=== PATIENT | male | born 1955 | race Caucasian/White ===

== ENCOUNTER → 2017-04-03 | Outpatient (CLI) | payer BC ==
[~2017-04-03] MED LIST: IOHEXOL 240 MG/ML 50ML VIAL. ONE; IOHEXOL 300 MG/ML 75 ML VIAL. IV ONE
--- NOTE | 2017-04-03 17:13 | RAD ---
CT abdomen/pelvis with contrast 04/03/2017 at 1646 hours Indication: Gastroenteritis and colitis. Diarrhea since Saturday. Comparison: None available Technique: Multiple axial CT images of the abdomen and pelvis were obtained after the administration of 75 mL of Omnipaque 300 intravenously. Coronal and sagittal reformats provided. Findings: Lung bases are clear. Heart size is within normal limits. There is hypoattenuation of the hepatic parenchyma suggestive of hepatic steatosis. No suspicious hepatic masses are identified. Splenic granuloma are present. Adrenal glands are within normal limits. Pancreas is normal in appearance. Gallbladder is surgically absent. No intrahepatic or extrahepatic biliary ductal dilatation. The abdominal aorta is normal in course and caliber. There are no enlarged lymph nodes in the abdomen or pelvis. There is no free fluid. No free intracranial air. The kidneys enhance symmetrically. There are no renal calculi. No suspicious renal masses. Small and large bowel are normal in caliber. Appendix is normal. No pericolonic inflammatory changes are identified. Posterior fixation hardware is identified from L1 through S1 with bilateral pedicle screws and laminectomy at L4-L5. Impression: 1. No significant abnormalities identified in the abdomen or pelvis. Specifically, no evidence for bowel obstruction. Normal appendix is visualized. 2. Suggestion of hepatic steatosis. PQRS Compliance Statement: One or more of the following individualized dose reduction techniques were utilized for this examination: 1. Automated exposure control 2. Adjustment of the mA and/or kV according to patient size 3. Use of iterative reconstruction technique
== END | disposition home or self-care (01) ==
LOC: CT 15:17
PROVIDERS: ATTEND Nurse Practitioner Family
DX: K52.89 Other specified noninfective gastroenteritis and colitis (principal); Z90.49 Acquired absence of other specified parts of digestive tract; Z98.890 Other specified postprocedural states; R19.7 Diarrhea, unspecified
CPT/HCPCS: 74177; Q9966; Q9967

== ENCOUNTER 2018-03-18 10:36 | Inpatient (IN) | payer BC ==
[~2018-03-18] VITALS: Ht 177.8 cm; Wt 105.4 kg
[2018-03-18] MEDS ORDERED: ONDANSETRON PF 4 MG/2 ML VIAL. IV PRN (10:45)
[2018-03-18 11:06] LABS: BASO # 0.1 x10^3/uL (0.0-0.2); BASO % 1 % (0-3); EOS # 0.2 x10^3/uL (0.0-0.7); EOS % 3 % (0-3); HEMATOCRIT 40.4 % (39.0-53.0); HEMOGLOBIN 13.7 g/dL (13.0-17.5); LYMPH # 1.8 x10^3/uL (1.0-4.8); LYMPH % 32 % (24-48); MEAN CORPUSCULAR HEMOGLOBIN 32 pg (25-35); MEAN CORPUSCULAR HGB CONC 34 g/dL (31-37); MEAN CORPUSCULAR VOLUME 94 fL (79-100); MONO # 0.7 x10^3/uL (0.0-1.1); MONO % 12 % (0-9); NEUT # 2.8 x10^3uL (1.8-7.7); NEUT % 51 % (31-73); PLATELET COUNT 205 x10^3/uL (140-400); RED BLOOD COUNT 4.31 x10^6/uL (4.30-5.70); RED CELL DISTRIBUTION WIDTH 15.1 % (11.5-14.5); WHITE BLOOD COUNT 5.6 x10^3/uL (4.0-11.0)
--- NOTE | 2018-03-18 11:12 | RAD ---
CT of the head without contrast, 03/18/2018: HISTORY: Confusion, garbled speech, difficulty swallowing Comparison is made to a study from 07/03/2016. There is moderate cerebral atrophy. 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 The ventricles are within normal limits in size. There is no shift of the midline structures. There is no evidence of acute intracranial hemorrhage or mass effect. IMPRESSION: 1. Chronic findings as described above. 2. No acute intracranial abnormality is detected. Note: The findings were called to the patient's nurse on the floor at 11:08 AM on 03/18/2018. Electronically signed by: Channing Harvey MD (03/18/2018 11:08 AM) [facility]
[2018-03-18 11:18] LABS: ALBUMIN 3.3 g/dL (3.4-5.0); ALBUMIN/GLOBULIN RATIO 0.9 (1.0-1.7); CALCIUM 8.8 mg/dL (8.5-10.1); CREATININE 1.1 mg/dL (0.7-1.3); GFR 67.6; MAGNESIUM 1.8 mg/dL (1.8-2.4); POTASSIUM 4.5 mmol/L (3.5-5.1); TOTAL BILIRUBIN 0.3 mg/dL (0.2-1.0); TOTAL PROTEIN 6.9 g/dL (6.4-8.2)
[2018-03-18] MEDS ORDERED: OMEP40CA5 PO (11:20)
[2018-03-18] MEDS ORDERED: FISH12002 PO (11:20)
[2018-03-18] MEDS ORDERED: ICOS1CAP PO (11:20)
[2018-03-18] MEDS ORDERED: MAGN400C PO (11:20)
[2018-03-18] MEDS ORDERED: GABA-586 PO (11:20)
[2018-03-18] MEDS ORDERED: CLOP75TA57 PO (11:20)
[2018-03-18] MEDS ORDERED: SIMV40TA3 PO (11:20)
[2018-03-18] MEDS ORDERED: FLUV100T2 PO (11:20)
[2018-03-18] MEDS ORDERED: LOSA50TA6 PO (11:20)
[2018-03-18] MEDS ORDERED: FOLI1CAP10 PO (11:20)
[2018-03-18] MEDS ORDERED: METO25TA4 PO (11:20)
[2018-03-18 11:22] VITALS: BP 171/93
[2018-03-18] MEDS ORDERED: METOPROLOL TART IMMED RELEASE 25 MG TABLET PO ONE (11:45)
[2018-03-18] MEDS ORDERED: hydrALAZINE 20 MG/ML VIAL. IV PRN (12:00)
[2018-03-18 12:06] LABS: BACTERIA,URINE 0 /HPF (0-FEW); BILIRUBIN,URINE NEG (NEG); CLARITY,URINE CLEAR; COLOR,URINE YELLOW; GLUCOSE,URINE NEG (NEG); NITRITE,URINE NEG (NEG); RBC,URINE 0 /HPF (0-2); SQUAMOUS EPITHELIAL CELL,UR FEW /LPF; UROBILINOGEN,URINE 0.2 mg/dL (0.2 mg/dL); WBC,URINE 0 /HPF (0-4)
[2018-03-18] MEDS ORDERED: HYDR-2758 PO (12:14)
[2018-03-18] MEDS: IV NORMAL SALINE 1,000ML 1,000 ML IV SCH ×2 (12:27→22:40)
[2018-03-18 13:05] VITALS: BP 102/61
[2018-03-18] MEDS ORDERED: IOHEXOL 300 MG/ML 75 ML VIAL. IV ONE (13:45)
--- NOTE | 2018-03-18 14:54 | RAD ---
CTA of the chest with contrast, 03/18/2018: HISTORY: Elevated d-dimer, stroke Multidetector CT imaging was performed following an IV bolus injection of iodinated contrast material. Multiplanar reconstructions were produced including coronal MIP images. The degree of opacification of the central pulmonary arteries is suboptimal on a technical basis. No filling defects are seen in central pulmonary arteries to suggest pulmonary emboli. The thoracic aorta is of normal caliber. There are several calcifications in the region of the aortic valve. Minimal coronary artery calcification is present. There are calcified right hilar and mediastinal lymph nodes due to old granulomatous disease. No mediastinal adenopathy is seen. There are granulomatous calcifications in the right lung. There are scattered peripheral reticular opacities bilaterally suggesting scarring. There are minimal hazy nonspecific groundglass opacities in the right upper and lower lobes. No dense pulmonary consolidation is seen. There is no evidence of pleural fluid. The liver is of lower than normal density in a diffuse pattern compatible with fatty change. There are mild scattered degenerative changes in the spine. IMPRESSION: 1. No CT evidence of central pulmonary emboli, although the degree of opacification of the central pulmonary arteries is suboptimal, limiting the sensitivity of this exam. 2. Minimal aortic valve region and coronary artery calcifications. 3. Mild pulmonary fibrosis. 4. Minimal nonspecific groundglass opacities in the right lung may be due to inflammation or scarring. 5. Hepatic steatosis. PQRS Compliance Statement: One or more of the following individualized dose reduction techniques were utilized for this examination: 1. Automated exposure control 2. Adjustment of the mA and/or kV according to patient size 3. Use of iterative reconstruction technique Electronically signed by: Channing Harvey MD (03/18/2018 2:50 PM) [facility]
--- NOTE | 2018-03-18 16:34 | CARD ---
MR#: [id number] Date of Study: 03/18/2018 Ordering Physician: GERARDO GROVES, Referring Physician: GERARDO GROVES, Tech: WILLIAM Kay APPROVED REPORT EXAM: Two-dimensional and M-mode echocardiogram with Doppler and color Doppler. Other Information Quality : Good INDICATION CVA/TIA Chest Pain Dizziness 2D DIMENSIONS Left Atrium(2D)3.6 (1.6-4.0cm)IVSd1.0 (0.7-1.1cm) Aortic Root(2D)3.0 (2.0-3.7cm)LVDd5.0 (3.9-5.9cm) LVOT Diameter2.1 (1.8-2.4cm)PWd1.1 (0.7-1.1cm) IVSs0.1 (0.8-1.2cm)LVDs2.9 (2.5-4.0cm) FS (%) 42.3 %SV85.2 ml LVEF(%)65.0 (>50%) Aortic Valve AoV Peak Taran.302.9cm/sAoV VTI63.3cm AO Peak GR.36.7mmHgLVOT Peak Taran.115.6cm/s LVOT VTI 26.81cmAO Mean GR.20mmHg PETRA (VMAX)1.97ix5BVI (VTI)1.45cm2 Mitral Valve MV E Eyurwckh23.0cm/sMV DECEL [id number] MV A Rzdebihm26.1cm/sE/A Ratio1.3 Tricuspid Valve TR P. Buwgwowu871ls/sTR Peak Gr.32mmHg LEFT VENTRICLE The left ventricle is normal size. There is normal left ventricular wall thickness. The left ventricu lar systolic function is normal. The Ejection Fraction is 65%. There is normal LV segmental wall [place] on. RIGHT VENTRICLE The right ventricle is normal size. There is normal right ventricular wall thickness. The right ventr icular systolic function is normal. ATRIA The left atrium size is normal. The right atrium size is normal. The interatrial septum is intact wit h no evidence for an atrial septal defect or patent foramen ovale as noted on 2-D or Doppler imaging. AORTIC VALVE The aortic valve is trileaflet. The aortic valve is moderately sclerotic. Doppler and Color Flow reve aled trace to mild aortic regurgitation. There is mild valvular aortic stenosis. MITRAL VALVE The mitral valve is normal in structure and function. There is no mitral valve stenosis. Doppler and Color-flow revealed mild mitral regurgitation. TRICUSPID VALVE The tricuspid valve is normal in structure and function. Doppler and Color Flow revealed mild tricusp id regurgitation. There is no tricuspid valve prolapse or vegetation. PULMONIC VALVE The pulmonic valve is not well visualized. Doppler and Color Flow revealed no pulmonic valvular regur gitation. There is no pulmonic valvular stenosis. GREAT VESSELS The aortic root is normal in size. The IVC is normal in size and collapses >50% with inspiration. PERICARDIAL EFFUSION There is no pleural effusion. There is no evidence of significant pericardial effusion. Critical Notification Critical Value: No <Conclusion> The left ventricular systolic function is normal. The Ejection Fraction is 65%. There is normal LV segmental wall motion. Mild valvular aortic stenosis with mean gradient 20 mm Hg. Trace to mild aortic regurgitation. Mild mitral regurgitation. Mild tricuspid regurgitation. There is no evidence of significant pericardial effusion. Signed by : Issa Ritter, Electronically Approved : 03/18/2018 16:33:19
[2018-03-18] MEDS ORDERED: ASPIRIN 81 MG TAB.CHEW PO ONE (17:00)
[2018-03-18 17:02] VITALS: BP 146/81
[2018-03-18] MEDS ORDERED: HYDROcodone/APAP 5/325MG 1 TAB TABLET PO PRN (17:15)
[2018-03-18 19:50] VITALS: BP 112/66
[2018-03-18] MEDS: NON FORMULARY ITEM (Icosapent Ethyl (Vascepa) 1 GM) PO SCH (21:00)
[2018-03-18] MEDS ORDERED: ATORVASTATIN CALCIUM 20 MG TABLET PO SCH (21:00)
[2018-03-18] MEDS: GABAPENTIN 300 MG CAPSULE. PO SCH (21:48)
[2018-03-18] MEDS: METOPROLOL TART IMMED RELEASE 25 MG TABLET PO SCH (21:49)
[2018-03-18] MEDS: LOSARTAN 50 MG TABLET. PO SCH (21:49)
[2018-03-18 22:45] VITALS: BP 117/74
[2018-03-19 06:27] LABS: BASO % 1 % (0-3); EOS # 0.2 x10^3/uL (0.0-0.7); EOS % 4 % (0-3); HEMATOCRIT 42.2 % (39.0-53.0); HEMOGLOBIN 14.6 g/dL (13.0-17.5); LYMPH # 1.4 x10^3/uL (1.0-4.8); LYMPH % 30 % (24-48); MEAN CORPUSCULAR HEMOGLOBIN 33 pg (25-35); MEAN CORPUSCULAR HGB CONC 35 g/dL (31-37); MEAN CORPUSCULAR VOLUME 94 fL (79-100); MONO # 0.6 x10^3/uL (0.0-1.1); MONO % 13 % (0-9); NEUT # 2.6 x10^3uL (1.8-7.7); NEUT % 53 % (31-73); PLATELET COUNT 203 x10^3/uL (140-400); RED BLOOD COUNT 4.48 x10^6/uL (4.30-5.70); RED CELL DISTRIBUTION WIDTH 14.9 % (11.5-14.5); WHITE BLOOD COUNT 4.9 x10^3/uL (4.0-11.0)
[2018-03-19 06:37] LABS: ALBUMIN 3.2 g/dL (3.4-5.0); ALBUMIN/GLOBULIN RATIO 0.8 (1.0-1.7); CALCIUM 9.1 mg/dL (8.5-10.1); GFR 75.5; MAGNESIUM 1.9 mg/dL (1.8-2.4); POTASSIUM 4.2 mmol/L (3.5-5.1); TOTAL BILIRUBIN 0.5 mg/dL (0.2-1.0)
[2018-03-19 06:42] VITALS: BP 178/98
[2018-03-19] MEDS ORDERED: ASPIRIN 81 MG TAB.CHEW PO SCH (08:00)
[2018-03-19] MEDS: METOPROLOL TART IMMED RELEASE 25 MG TABLET PO SCH (08:07)
[2018-03-19] MEDS: GABAPENTIN 300 MG CAPSULE. PO SCH (08:08)
[2018-03-19] MEDS: LOSARTAN 50 MG TABLET. PO SCH (08:09)
[2018-03-19] MEDS ORDERED: PANTOPRAZOLE 40 MG TABLET. PO SCH (09:00)
[2018-03-19] MEDS ORDERED: OMEGA-3 FATTY ACIDS/FISH OIL 1,000 MG CAPSULE. PO SCH (09:00)
[2018-03-19] MEDS ORDERED: FOLIC ACID 1 MG TABLET PO SCH (09:00)
[2018-03-19] MEDS ORDERED: MAGNESIUM OXIDE 400 MG TABLET PO SCH (09:00)
[2018-03-19] MEDS: NON FORMULARY ITEM (Icosapent Ethyl (Vascepa) 1 GM) PO SCH (09:00)
[2018-03-19] MEDS ORDERED: CLOPIDOGREL BISULFATE 75 MG TABLET PO SCH (09:00)
[2018-03-19] MEDS ORDERED: amLODIPine BESYLATE 5 MG TABLET PO SCH (09:00)
[2018-03-19 10:03] VITALS: BP 159/96
[2018-03-19] MEDS: hydrALAZINE 25 MG TABLET PO SCH ×2 (10:35→14:05)
[2018-03-19] MEDS ORDERED: IOHEXOL 300 MG/ML 75 ML VIAL. IV ONE (10:40)
--- NOTE | 2018-03-19 10:54 | PDOC2 ---
CONSULT Date of Admission DATE: 03/19/18 TIME: 10:53 Reason for Consult: Hypertensive emergency. Referring Physician: Victor Manuel Reyes MD Chief Complaint Slurred speech and high blood pressure. Source: Patient History of Present Illness He is a pleasant 62-year-old male with no known history of coronary artery disease. Approximately 2 weeks ago he noticed his blood pressure was trending upwards. He saw his primary provider who adjusted the medications. However, he was still having high blood pressures, especially later in the day. Then yesterday his blood pressure again shot up into the 170-180 range. He was starting to feel somewhat confused and had slurred speech. He went to his primary care provider who then admitted to the hospital for further evaluation. Since being in the hospital, his dysarthria has improved. He was also having trouble swallowing yesterday but this has also improved. He denies any headache or visual changes. He denies any chest pain, dyspnea, paroxysmal nocturnal dyspnea, orthopnea, lightheadedness, syncope, or lower extremity edema. Because of the very high blood pressure, a cardiology caused is requested. Cardiovascular: HTN, hyperipidemia, aortic stenosis Family History His father had coronary artery bypass surgery in his 60s. Smoke: No Current Medications Current Medications Sodium Chloride 1,000 ml @ 100 mls/hr Q10H IV Last administered on 03/18/18at 22:40; Start 03/18/18 at 11:00; Stop 03/19/18 at 09:39; Status DC Ondansetron HCl (Zofran) 4 mg PRN Q8HRS PRN IV NAUSEA/VOMITING; Start 03/18/18 at 10:45 Metoprolol Tartrate (Lopressor) 25 mg 1X ONCE PO ; Start 03/18/18 at 11:45; Stop 03/18/18 at 11:46; Status DC Hydralazine HCl (Apresoline) 10 mg PRN Q4HRS PRN IV ELEVATED BP, SEE COMMENTS Last administered on 03/18/18at 12:27; Start 03/18/18 at 12:00 Amlodipine Besylate (Norvasc) 5 mg DAILY PO Last administered on 03/19/18at 08:07 ; Start 03/19/18 at 09:00 Iohexol (Omnipaque 300 Mg/ml) 75 ml 1X ONCE IV Last administered on 03/18/18at 14:06; Start 03/18/18 at 13:45; Stop 03/18/18 at 13:46; Status DC Aspirin (Children'S Aspirin) 81 mg DAILYWBKFT PO Last administered on 03/19/18 08:08; Start 03/19/18 at 08:00 Aspirin (Children'S Aspirin) 81 mg 1X ONCE PO Last administered on 03/18/18at 18:11; Start 03/18/18 at 17:00; Stop 03/18/18 at 17:01; Status DC Clopidogrel Bisulfate (Plavix) 75 mg DAILY PO Last administered on 03/19/18 08: 10; Start 03/19/18 at 09:00 Gabapentin (Neurontin) 300 mg BID PO Last administered on 03/19/18at 08:08; Start 03/18/18 at 21:00 Losartan Potassium (Cozaar) 50 mg BID PO Last administered on 03/19/18at 08:09; Start 03/18/18 at 21:00 Metoprolol Tartrate (Lopressor) 25 mg BID PO Last administered on 03/19/18at 08: 07; Start 03/18/18 at 21:00 Atorvastatin Calcium (Lipitor) 20 mg QHS PO Last administered on 03/18/18at 21: 49; Start 03/18/18 at 21:00 Fish Oil (Fish Oil) 1,000 mg DAILY PO Last administered on 03/19/18at 08:07; Start 03/19/18 at 09:00 Fluvoxamine Maleate (Luvox) 100 mg QHS PO Last administered on 03/18/18at 21:49 ; Start 03/18/18 at 21:00 Folic Acid (Folic Acid) 1 mg DAILY PO Last administered on 03/19/18at 08:05; Start 03/19/18 at 09:00 Acetaminophen/ Hydrocodone Bitart (Lortab 5/325) 1 tab PRN Q6HRS PRN PO PAIN; Start 03/18/18 at 17:15 Non-Formulary Medication (Icosapent Ethyl (Vascepa)) 1 gm BID PO ; Start at 21:00; Status UNV Magnesium Oxide (Magnesium Oxide) 400 mg DAILY PO Last administered on at 08:10; Start 03/19/18 at 09:00 Pantoprazole Sodium (Protonix) 40 mg QODAY PO Last administered on 03/19/18at 08: 08; Start 03/19/18 at 09:00 Hydralazine HCl (Apresoline) 25 mg TID PO Last administered on 03/19/18at 10:35; Start 03/19/18 at 10:00 Iohexol (Omnipaque 300 Mg/ml) 75 ml 1X ONCE IV Last administered on 03/19/18at 10:40; Start 03/19/18 at 10:40; Stop 03/19/18 at 10:41; Status DC Active Scripts Active Reported Hydrocodone-Apap 5-325 (Hydrocodone Bit/Acetaminophen) 1 Each Tablet 1 Tab PO PRN Q6HRS PRN Magnesium (Magnesium Oxide) 400 Mg Capsule 1 Cap PO DAILY Brimson 3-6-9 1,200 mg Softgel (Fish Oil/Borage/Flax/Om3,6,9#1) 1,200 Mg Capsule 1 ,200 Mg PO DAILY Renal Caps Softgel (Folic Acid/Vitamin B Comp W-C) 1 Mg Capsule 1 Cap PO DAILY Gabapentin 300 Mg Capsule 300 Mg PO BID Plavix (Clopidogrel Bisulfate) 75 Mg Tablet 1 Tab PO DAILY Plavix (Clopidogrel Bisulfate) 75 Mg Tablet 1 Tab PO DAILY Metoprolol Tartrate 25 Mg Tablet 1 Tab PO BID Omeprazole 40 Mg Capsule.dr 1 Cap PO QODAY Simvastatin 40 Mg Tablet 1 Tab PO QHS Fluvoxamine Maleate 100 Mg Tablet 1 Tab PO QHS Losartan Potassium 50 Mg Tablet 50 Mg PO BID Vascepa (Icosapent Ethyl) 1 Gm Capsule 1 Gm PO BID Allergies: Coded Allergies: No Known Drug Allergies (Unverified , 04/03/17) Review of System Review of 10 organ systems is as per the history of present illness, otherwise negative. General: Alert, Oriented X3, Cooperative, No acute distress HEENT: Atraumatic, EOMI, Mucous membr. moist/pink Lungs: Clear to auscultation, Normal air movement Heart: Regular rate, Normal S1, Normal S2, Other (2/6 systolic ejection murmur. ) Abdomen: Normal bowel sounds, Soft, No tenderness, No hepatospenomegaly, No masses Extremities: No clubbing, No cyanosis, No edema, Normal pulses, No tenderness/ swelling VITALS Vital Signs Date Time Temp Pulse Resp B/P (MAP) Pulse Ox O2 Delivery O2 Flow Rate FiO2 03/19/18 10:35 55 159/96 03/19/18 10:03 97.8 20 97 Room Air Labs Laboratory Tests Test 03/18/18 10:57 03/18/18 11:39 03/18/18 17:10 03/18/18 23:09 White Blood Count 5.6 x10^3/uL (4.0-11.0) Red Blood Count 4.31 x10^6/uL (4.30-5.70) Hemoglobin 13.7 g/dL (13.0-17.5) Hematocrit 40.4 % (39.0-53.0) Mean Corpuscular Volume 94 fL (79-100) Mean Corpuscular Hemoglobin 32 pg (25-35) Mean Corpuscular Hemoglobin Concent 34 g/dL (31-37) Red Cell Distribution Width 15.1 % (11.5-14.5) Platelet Count 205 x10^3/uL (140-400) Neutrophils (%) (Auto) 51 % (31-73) Lymphocytes (%) (Auto) 32 % (24-48) Monocytes (%) (Auto) 12 % (0-9) Eosinophils (%) (Auto) 3 % (0-3) Basophils (%) (Auto) 1 % (0-3) Neutrophils # (Auto) 2.8 x10^3uL (1.8-7.7) Lymphocytes # (Auto) 1.8 x10^3/uL (1.0-4.8) Monocytes # (Auto) 0.7 x10^3/uL (0.0-1.1) Eosinophils # (Auto) 0.2 x10^3/uL (0.0-0.7) Basophils # (Auto) 0.1 x10^3/uL (0.0-0.2) D-Dimer (Carin) 0.56 mg/L (0.00-0.50) Sodium Level 132 mmol/L (136-145) Potassium Level 4.5 mmol/L (3.5-5.1) Chloride Level 100 mmol/L (98-107) Carbon Dioxide Level 27 mmol/L (21-32) Anion Gap 5 (6-14) Blood Urea Nitrogen 24 mg/dL (8-26) Creatinine 1.1 mg/dL (0.7-1.3) Estimated GFR (Cockcroft-Gault) 67.6 BUN/Creatinine Ratio 22 (6-20) Glucose Level 131 mg/dL (70-99) Lactic Acid Level 0.5 mmol/L (0.4-2.0) Calcium Level 8.8 mg/dL (8.5-10.1) Magnesium Level 1.8 mg/dL (1.8-2.4) Total Bilirubin 0.3 mg/dL (0.2-1.0) Aspartate Amino Transf (AST/SGOT) 61 U/L (15-37) Alanine Aminotransferase (ALT/SGPT) 94 U/L (16-63) Alkaline Phosphatase 127 U/L (46-116) Creatine Kinase 176 U/L (39-308) 159 U/L (39-308) 158 U/L (39-308) Creatine Kinase MB (Mass) 5.6 ng/mL (0.0-3.6) 5.0 ng/mL (0.0-3.6) 4.5 ng/mL (0.0-3.6) Creatine Kinase MB Relative Index 3.2 % (0-4) 3.1 % (0-4) 2.8 % (0-4) Troponin I Quantitative < 0.017 ng/mL (0-0.055) < 0.017 ng/mL (0-0.055) < 0.017 ng/mL (0-0.055) Total Protein 6.9 g/dL (6.4-8.2) Albumin 3.3 g/dL (3.4-5.0) Albumin/Globulin Ratio 0.9 (1.0-1.7) Ethyl Alcohol Level < 10 mg/dL (0-10) Urine Collection Type Unknown Urine Color Yellow Urine Clarity Clear Urine pH 6.0 Urine Specific [place] <=1.005 Urine Protein Neg (NEG-TRACE) Urine Glucose (UA) Neg mg/dL (NEG) Urine Ketones (Stick) Neg mg/dL (NEG) Urine Blood Neg (NEG) Urine Nitrite Neg (NEG) Urine Bilirubin Neg (NEG) Urine Urobilinogen Dipstick 0.2 mg/dL (0.2 mg/dL) Urine Leukocyte Esterase Neg (NEG) Urine RBC 0 /HPF (0-2) Urine WBC 0 /HPF (0-4) Urine Squamous Epithelial Cells Few /LPF Urine Bacteria 0 /HPF (0-FEW) Test 03/19/18 05:53 White Blood Count 4.9 x10^3/uL (4.0-11.0) Red Blood Count 4.48 x10^6/uL (4.30-5.70) Hemoglobin 14.6 g/dL (13.0-17.5) Hematocrit 42.2 % (39.0-53.0) Mean Corpuscular Volume 94 fL (79-100) Mean Corpuscular Hemoglobin 33 pg (25-35) Mean Corpuscular Hemoglobin Concent 35 g/dL (31-37) Red Cell Distribution Width 14.9 % (11.5-14.5) Platelet Count 203 x10^3/uL (140-400) Neutrophils (%) (Auto) 53 % (31-73) Lymphocytes (%) (Auto) 30 % (24-48) Monocytes (%) (Auto) 13 % (0-9) Eosinophils (%) (Auto) 4 % (0-3) Basophils (%) (Auto) 1 % (0-3) Neutrophils # (Auto) 2.6 x10^3uL (1.8-7.7) Lymphocytes # (Auto) 1.4 x10^3/uL (1.0-4.8) Monocytes # (Auto) 0.6 x10^3/uL (0.0-1.1) Eosinophils # (Auto) 0.2 x10^3/uL (0.0-0.7) Basophils # (Auto) 0.0 x10^3/uL (0.0-0.2) Sodium Level 139 mmol/L (136-145) Potassium Level 4.2 mmol/L (3.5-5.1) Chloride Level 105 mmol/L (98-107) Carbon Dioxide Level 26 mmol/L (21-32) Anion Gap 8 (6-14) Blood Urea Nitrogen 16 mg/dL (8-26) Creatinine 1.0 mg/dL (0.7-1.3) Estimated GFR (Cockcroft-Gault) 75.5 BUN/Creatinine Ratio 16 (6-20) Glucose Level 111 mg/dL (70-99) Calcium Level 9.1 mg/dL (8.5-10.1) Magnesium Level 1.9 mg/dL (1.8-2.4) Total Bilirubin 0.5 mg/dL (0.2-1.0) Aspartate Amino Transf (AST/SGOT) 48 U/L (15-37) Alanine Aminotransferase (ALT/SGPT) 88 U/L (16-63) Alkaline Phosphatase 78 U/L (46-116) Total Protein 7.0 g/dL (6.4-8.2) Albumin 3.2 g/dL (3.4-5.0) Albumin/Globulin Ratio 0.8 (1.0-1.7) Assessment/Plan Hypertensive emergency. I made some adjustments to the patient's antihypertensive therapy and his blood pressure has improved. If his blood pressure continues to be high in the afternoons, we may want to consider giving him amlodipine twice a day as opposed to once a day. If his blood pressure remains under good control, he may be ready for discharged home once his neurologic and other noncardiac problems are improved. Aortic stenosis. This is in a mild to moderate range. This should not be causing symptoms but will need to be followed longitudinally. I will have my office arrange for a 1 month follow-up after discharge and then we will plan to see him twice a year after that. Hypercholesterolemia. I recommend he continue on statin medication. A lipid panel was pending when I saw him earlier today. Transient ischemic attack. The patient seems to have suffered a transient ischemic attack. He had a previous history of a stroke in the past. I recommend he continue on aspirin, clopidogrel, and statin medication. He is apparently ordered for an MRI later today. We may also want to consider an outpatient event monitor to screen for asymptomatic atrial fibrillation that could have also caused transient ischemic attack. Disposition. As above, from a cardiac standpoint, the patient can be discharged home once all of his noncardiac problems have come under control. I will have my office arrange for outpatient follow-up in approximately 1 month. YOUSIF LAU Jr, MD Mar 19, 2018 10:54
--- NOTE | 2018-03-19 11:56 | RAD ---
CTA of the head and neck with contrast, 03/19/2018: HISTORY: TIA, previous left carotid endarterectomy Multidetector CT imaging was performed with multiplanar reconstructions produced. There is no significant stenosis of the cervicocephalic arteries as they arise from the aortic arch. The right common carotid artery is widely patent. There is mild calcific plaquing at the right carotid bifurcation. This is producing only minimal narrowing of the proximal right internal carotid artery. The distal right internal carotid artery is widely patent in the upper neck. There is moderate calcific plaquing involving its cavernous segment with moderate associated stenosis. The right middle cerebral and anterior cerebral arteries and their major branches are unremarkable. On the left, the common carotid artery and carotid bifurcation are widely patent. The proximal left internal carotid artery is tortuous but widely patent. There is mild calcific plaquing involving its cavernous segment without evidence of high-grade stenosis. The left anterior cerebral and middle cerebral arteries and their major branches show no abnormality. Both vertebral arteries in the neck are patent. The left vertebral artery is dominant. The basilar artery shows no abnormality. The posterior cerebral arteries are somewhat small and not optimally opacified. No definite abnormality is seen. Moderate multilevel degenerative changes are noted in the cervical spine. IMPRESSION: 1. Mild calcific plaquing at the right carotid bifurcation with only minimal narrowing of the proximal right internal carotid artery. 2. Status post left carotid endarterectomy with no evidence of significant restenosis. 3. Moderate calcific plaquing and narrowing of the cavernous segment of the distal right internal carotid artery. 4. Otherwise no major intracranial arterial occlusive disease is identified. PQRS Compliance Statement: One or more of the following individualized dose reduction techniques were utilized for this examination: 1. Automated exposure control 2. Adjustment of the mA and/or kV according to patient size 3. Use of iterative reconstruction technique Electronically signed by: Channing Harvey MD (03/19/2018 11:52 AM) [facility]
[2018-03-19 14:05] VITALS: BP 159/96
--- NOTE | 2018-03-19 16:07 | CONS ---
DATE OF CONSULTATION: 03/18/2018 REFERRING PHYSICIAN: Dr. Reyes. REASON FOR CONSULTATION: Rule out TIA versus stroke. HISTORY OF PRESENT ILLNESS: This is a 62-year-old right-handed, pleasant male who was admitted directly from his primary care physician's office after he was found to have emergent high blood pressure. According to the patient, he has been suffering from hypertension off and on in the last 3 weeks, but this morning, he did not feel well and he started having unsteady gait, slurred speech and difficulty swallowing. He denies headaches, visual disturbances, chest pain, shortness of breath, or palpitations. He was seen immediately in primary care physician's office and found to have a blood pressure of 179/101. The patient also complains of chronic lower back pain radiating to the lower extremities and associated with numbness and paresthesia, prolonged standing and walking usually aggravates his back pain. The Initial nonenhanced head CT scan revealed no acute intracranial process, but showed left frontal lobe infarct and left occipital lobe infarct old infarct. PAST MEDICAL HISTORY: Consistent with a stroke in 2015, affecting his right side, but recovered with physical therapy and rehabilitation. History of hypertension, hyperlipidemia, TIA, chronic lower back pain, GERD. The patient was seen at [facility] one and half years ago and they took him off aspirin because of improved symptoms of stroke. MRA of the cervical spine performed in 06/2016 revealed irregular proximal left common internal carotid artery and at least 50% of stenosis. MRA of the brain revealed possible diminished diameter of the distal basilar artery. PAST SURGICAL HISTORY: Significant for multiple lumbosacral spine surgeries with effusion along with right rotator cuff repair in 2016, cholecystectomy in 2004, right total knee replacement in 2013, left total knee replacement in 05/2015, left carotid prostatectomy at in 03/2016, status post left second toe amputation in 11/2016. FAMILY HISTORY: Father had coronary artery disease, required a coronary artery bypass graft. Mother had lupus and Sjogren disease. There is a family history of heart disease and Alzheimer's. SOCIAL HISTORY: The patient had one living son. He denies smoking, but he drinks alcohol moderately. CURRENT HOME MEDICATIONS: Plavix 75 mg, was placed about 2 months ago for possible recurrent TIAs, simvastatin 40 mg daily, omeprazole 40 mg p.o. daily, gabapentin 300 mg twice daily, cyclobenzaprine 5 mg 3 times daily, losartan 50 mg daily and metoprolol 25 mg b.i.d. ALLERGIES: No known drug allergies. REVIEW OF SYSTEMS: A 10-point review of system was as mentioned above in history of present illness. PHYSICAL EXAMINATION: GENERAL: Obese white male in no acute distress. He weighs 232 pounds. VITAL SIGNS: Blood pressure 102/61, respiratory rate 20, pulse of 56, temperature 98.3, oxygen saturation 98% on room air. HEENT: Normocephalic, atraumatic, otherwise unremarkable. NECK: Supple. Negative for carotid bruit, thyromegaly, lymphadenopathy, or JVD, status post left carotid endarterectomy. LUNGS: Clear to A and P. CARDIOVASCULAR: Regular rhythm, normal S1, S2. There is a 2/6 systolic murmur. No S3, no S4. ABDOMEN: Soft, bowel sounds positive. No organomegaly or tenderness. EXTREMITIES: Negative for cyanosis, clubbing or edema. NEUROLOGIC: Mental status: The patient is alert and oriented x 3. Speech is fluent. There is no language dysfunction. His memory, judgment her abstract thinking are normal. The patient denies hallucination or delusion. Cranial Nerves: Visual mcclain full. The pupils are reactive to light and accommodation. Extraocular movements are intact. There is no nystagmus. There is no facial motor or sensory deficit. Hearing is slightly diminished bilaterally. The palate is elevated symmetrically. Sternocleidomastoid muscles are powerful bilaterally. The patient shrugs his shoulder symmetrically, protrudes his tongue in the midline without fasciculation or atrophy. Motor examination: No focal muscle bulk was seen. The tone is normal. The strength is 5/5 throughout. Sensory examination: Revealed normal pinprick, light touch, vibratory and position senses. Deep tendon Reflexes were symmetric and hypoactive with absent Achilles responses bilaterally. Gait and coordination are normal. LABORATORY DATA: CBC revealed white blood cells of 5.6 thousand, hemoglobin 13.7, hematocrit 40.4, platelet count 205,000. Chemistry: Sodium 132, potassium 4.5, chloride 100, CO2 of 27, BUN 24, creatinine 1.1, glucose was 131, calcium 8.8. Liver enzymes are elevated, AST at 61, ALT at 94 and alkaline phosphatase is high at 127. Creatinine kinase is normal at 176 with his CK-MB of 5.6. Troponin level is normal. Urinalysis is negative. Urine drug screen is negative with alcohol less than 10. IMPRESSION: 1. Possible transient ischemic attack. The patient presented with severe hypertension along with slurred speech, dysphagia and unsteady gait. The symptoms lasted from 9:00 a.m. to 2:00 p.m. with complete recovery. 2. Multiple risk of strokes including age, hypertension, hyperlipidemia, previous stroke and recurrent TIAs. 3. Abnormal echocardiogram with a cardiac murmur. 4. Chronic lower back pain, status post multiple back surgeries, with possible spinal stenosis. 5. Symptoms of peripheral neuropathy. RECOMMENDATIONS: 1. Correct hypertension slowly and keep systolic blood pressure between 130-140 mmHg. 2. Cardiology consult. 3. CT angio of the neck and head. 4. The patient has been scheduled to be seen by physical therapy. 5. We will start the patient on aspirin 81 mg additionally to the Plavix as the patient had possible TIA while he was taking Plavix. M Ruhtie PAYNE MD DR: CUBA/maximilian JOB#: [id number] / [id number]
--- NOTE | 2018-03-20 05:31 | DS ---
DATE OF DISCHARGE: 03/19/2018 HOSPITAL COURSE: This is a 62-year-old gentleman who came in with lightheadedness and dizziness. The patient was initially seen in the office, admitted to the hospital for further evaluation. He was seen by Dr. Sterling, his rough rounder machine. Cardiac enzymes were basically ____. He had elevated blood pressure of 170 to 180. The patient had become confused and had slurred speech and there was consistent concern that the patient had some ____ either a TIA or a stroke. The patient has a previous history of strokes and TIAs in the past as well. Immunizations for influenza and pneumococcal were up to date. The patient made good progress. His cardiac enzymes were basically negative; however, the patient's triglycerides were elevated at 255, LDL low at 37, and his LDL was only roughly 80. Slight elevation of liver enzymes 48 and 88, AST and ALT respectively. The patient otherwise made good progress. He was seen by Neurology. His CTA of the neck showed mild calcific bifurcation of the right carotid only ____ left carotid endarterectomy with no evidence of significant restenosis, moderate calcific plaquing and narrowing of the cavernous segment of distal right internal carotid artery. He had encephalomalacia in the left frontal lobe and left occipital lobe ____ infarcts. He had moderate cerebral atrophy. The patient otherwise made good progress. The patient will follow up with Dr. Sterling and Dr. Morales. IMPRESSION: Probable transient ischemic attack, chest pain, history of carotid atherosclerosis, elevated liver enzymes, mild protein malnutrition, hypercholesterolemia, hypertriglyceridemia, encephalomalacia, history of previous stroke to left frontal lobe with a history also of transient ischemic attack. The patient has slurred speech. The patient will be discharged home. DIET: Heart healthy diet. ACTIVITY: Decreased activity. FOLLOWUP: Follow up with his specialist as well as his primary care physician. GERARDO GROVES MD DR: FRANCES/maximilian JOB#: [id number] / [id number]
--- NOTE | 2018-03-21 13:25 | EKG ---
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
== END 2018-03-19 17:10 | disposition home or self-care (01) | DRG 69 ==
LOC: 1 SOUTH 10:38
PROVIDERS: ADMIT Family Medicine; ATTEND Family Medicine
DX: G45.9 Transient cerebral ischemic attack, unspecified (principal); I16.1 Hypertensive emergency; E44.1 Mild protein-calorie malnutrition; E78.00 Pure hypercholesterolemia, unspecified; E78.1 Pure hyperglyceridemia; E78.5 Hyperlipidemia, unspecified; G89.29 Other chronic pain; I10 Essential (primary) hypertension; I35.0 Nonrheumatic aortic (valve) stenosis; K21.9 Gastro-esophageal reflux disease without esophagitis; I67.89 Other cerebrovascular disease; R47.1 Dysarthria and anarthria; Z96.653 Presence of artificial knee joint, bilateral; M54.5 Low back pain; R26.81 Unsteadiness on feet; G93.89 Other specified disorders of brain; R13.10 Dysphagia, unspecified; Z82.0 Family history of epilepsy and other diseases of the nervous system; Z82.49 Family history of ischemic heart disease and other diseases of the circulatory system; Z83.2 Family history of diseases of the blood and blood-forming organs and certain disorders involving the immune mechanism; Z89.422 Acquired absence of other left toe(s); Z90.49 Acquired absence of other specified parts of digestive tract; Z98.1 Arthrodesis status; Z79.899 Other long term (current) drug therapy; Z79.02 Long term (current) use of antithrombotics/antiplatelets; Z68.33 Body mass index [BMI] 33.0-33.9, adult
CPT/HCPCS: 36415; 70450; 70496; 70498; 71275; 80053; 80061; 81001; 82553; 83605; 83735; 84484; 85025; 85379; 93005; 93306; G0480; J0360; Q9967; J7030

== ENCOUNTER → 2018-03-27 | Outpatient (CLI) | payer BC ==
[2018-03-19 14:05] VITALS: BP 159/96
[~2018-03-27] MED LIST changes: +CLOP75TA57 PO; +FISH12002 PO; +FLUV100T2 PO; +FOLI1CAP10 PO; +GABA-586 PO; +HYDR-2758 PO; +ICOS1CAP PO; -IOHEXOL 240 MG/ML 50ML VIAL. ONE; -IOHEXOL 300 MG/ML 75 ML VIAL. IV ONE; +LOSA50TA6 PO; +MAGN400C PO; +METO25TA4 PO; +OMEP40CA5 PO; +SIMV40TA3 PO
--- NOTE | 2018-03-27 10:13 | RAD ---
CT lumbar spine without intravenous contrast History: Previous surgery. New onset of radiculopathy in the right leg. Numbness in right foot. Pain in the lower back. Comparison: Report of outside MRI ([facility]) March 10, 2018 was reviewed. Direct images are not available. Technique: Noncontrast CT of the lumbar spine was performed. Axial, sagittal, and coronal reconstructions were obtained. Exposure: One or more of the following individualized dose reduction techniques were utilized for this examination: 1. Automated exposure control 2. Adjustment of the mA and/or kV according to patient size 3. Use of iterative reconstruction technique Findings: Evaluation of spinal contents is limited by lack of intrathecal contrast. Extensive spinal fusion hardware is seen. Posterior spinal fusion hardware with bilateral pedicle screws and bilateral bridging vertical bars are seen at each level from L1 through S1. The bilateral sacral screws demonstrate 2 mm of lucency surrounding the screws, indicating mild loosening. The other screws are without evidence of loosening. Discectomy changes are seen at L3-4 and L4-5. L4-5 and L5-S1 laminectomy changes are seen. Right hemilaminectomy changes are seen at L1-2. Posterior osseous bone graft material is seen at L1-2 and L2-3. There is no evidence of acute fracture or acute malalignment. No paravertebral soft tissue swelling is identified. There is mild retrolisthesis at L1-2. T12-L1 level demonstrates minimal disc bulge. There is mild buckling of ligamentum flavum and minimal bilateral facet hypertrophy. No spinal canal narrowing is seen. L1-2 level demonstrates posterior disc osteophyte complex. Right hemilaminectomy changes are seen. There is mild left facet hypertrophy. Mild left and moderate right neural foraminal narrowing is seen. No spinal canal narrowing is seen. L2-3 level is without convincing disc bulge. Bilateral facet hypertrophy is seen. Minimal bilateral neural foraminal narrowing is present. No spinal canal narrowing is seen. L3-4 level demonstrates advanced facet degeneration and mild buckling of ligamentum flavum. No spinal canal or neural foraminal narrowing is identified. L4-5 level demonstrates advanced bilateral facet hypertrophy. Spinal canal is widely patent. Mild bilateral neural foraminal narrowing is seen. L5-S1 level demonstrates advanced bilateral facet hypertrophy. There is evidence of diffuse disc bulge. No spinal canal stenosis is identified. Severe bilateral neural foraminal narrowing is seen. Impression: 1. Extensive postsurgical change from L1 through S1. The bilateral S1 pedicle screws demonstrate evidence of mild loosening. Other pedicle screws have appropriate appearance. 2. No acute fracture identified. 3. No spinal canal stenosis identified at any level. 4. Multilevel neural foraminal narrowing, worst at L5-S1 where it is severe. Lesser neural foraminal narrowing at other levels as described above. Electronically signed by: Jerardo Steven MD (03/27/2018 10:09 AM) [id number]
--- NOTE | 2018-03-27 11:43 | RAD ---
Lumbar spine, 3 views, 03/27/2018: HISTORY: Right leg radiculopathy, previous surgery Comparison is made to a study from 06/12/2016. There are bilateral pedicle screws at all the lumbar levels as well as at S1 attached to longitudinally oriented posterior fixation rods. Radiopaque disc spacers are present at L3-4 and L4-5. A laminectomy defect is present at L4 and L5. There is a minimal unchanged anterolisthesis at L5-S1 and a minimal retrolisthesis at L1-2. There is moderate disc space narrowing and spurring at L1-2 and to a lesser degree at L2-3 and L5-S1. The vertebral alignment appears unchanged. No fracture is evident. Aortic calcific plaquing is present. IMPRESSION: 1. Stable extensive postsurgical findings as described above. 2. Moderate multilevel degenerative change. 3. Unchanged minimal anterolisthesis at L5-S1 and minimal retrolisthesis at L1-2. Electronically signed by: Channing Harvey MD (03/27/2018 11:40 AM) [facility]
== END | disposition home or self-care (01) ==
LOC: CT 08:02
PROVIDERS: ATTEND Neurological Surgery
DX: M47.896 Other spondylosis, lumbar region (principal); M43.17 Spondylolisthesis, lumbosacral region; M48.07 Spinal stenosis, lumbosacral region; M25.78 Osteophyte, vertebrae; I10 Essential (primary) hypertension; E78.5 Hyperlipidemia, unspecified; E78.00 Pure hypercholesterolemia, unspecified; Z79.02 Long term (current) use of antithrombotics/antiplatelets; Z96.653 Presence of artificial knee joint, bilateral; Z90.49 Acquired absence of other specified parts of digestive tract; Z89.422 Acquired absence of other left toe(s); Z68.33 Body mass index [BMI] 33.0-33.9, adult; Z83.2 Family history of diseases of the blood and blood-forming organs and certain disorders involving the immune mechanism
CPT/HCPCS: 72100; 72131

== ENCOUNTER → 2019-04-03 | Outpatient (CLI) | payer BC ==
[2019-04-02 10:00] VITALS: BP 146/82
[~2019-04-03] MED LIST changes: +CYCL-331 PO; +HYDR-2155 PO; -HYDR-2758 PO; -LOSA50TA6 PO; +LOSA50TA86 PO
--- NOTE | 2019-04-03 16:14 | RAD ---
Right lower extremity arterial duplex study 04/03/2019 CLINICAL HISTORY: Nonhealing wound involving the right foot. TECHNIQUE: Using a combination of real-time ultrasound imaging and color-flow and pulse doppler imaging techniques, duplex evaluation of the major arterial structures of the right lower extremity was performed. Multiple images were obtained. FINDINGS: Mild atheromatous/atherosclerotic plaque formation is seen scattered throughout the major arterial structures of the right lower extremity. The right common femoral, superficial femoral and popliteal arteries are triphasic. The posterior tibial artery is monophasic. The peak systolic velocities taper normally. No hemodynamically significant stenosis is seen. The right peroneal arteries and anterior tibial arteries appear to be occluded. Monophasic arterial flow is seen within the right dorsalis pedis artery with a peak systolic velocity of 73 cm/s. IMPRESSION: Mild atheromatous/atherosclerotic plaque formation is seen scattered throughout the major arterial structures of the right lower extremity. No hemodynamically significant stenosis is seen. The right peroneal and anterior tibial arteries appear to be occluded. Electronically signed by: Alvaro Loja MD (04/03/2019 4:11 PM) [id number]
== END | disposition home or self-care (01) ==
LOC: US 09:43
PROVIDERS: ATTEND Emergency Medicine Undersea and Hyperbaric Medicine
DX: I70.291 Other atherosclerosis of native arteries of extremities, right leg (principal); L97.518 Non-pressure chronic ulcer of other part of right foot with other specified severity
CPT/HCPCS: 93926

== ENCOUNTER → 2019-04-14 | Outpatient (CLI) | payer BC ==
[2019-04-14 10:15] VITALS: BP 124/71
[2019-04-14 18:37] LABS: CALCIUM 9.2 mg/dL (8.5-10.1); CREATININE 1.2 mg/dL (0.7-1.3); POTASSIUM 4.3 mmol/L (3.5-5.1)
[2019-04-14 18:58] LABS: BASO # 0.1 x10^3/uL (0.0-0.2); BASO % 1 % (0-3); EOS # 0.3 x10^3/uL (0.0-0.7); EOS % 4 % (0-3); HEMOGLOBIN 12.2 g/dL (13.0-17.5); LYMPH % 29 % (24-48); MEAN CORPUSCULAR HEMOGLOBIN 33 pg (25-35); MEAN CORPUSCULAR HGB CONC 34 g/dL (31-37); MEAN CORPUSCULAR VOLUME 99 fL (79-100); MONO # 0.7 x10^3/uL (0.0-1.1); MONO % 10 % (0-9); NEUT # 3.9 x10^3uL (1.8-7.7); NEUT % 56 % (31-73); PLATELET COUNT 183 x10^3/uL (140-400); RED BLOOD COUNT 3.65 x10^6/uL (4.30-5.70); RED CELL DISTRIBUTION WIDTH 14.9 % (11.5-14.5); WHITE BLOOD COUNT 6.9 x10^3/uL (4.0-11.0)
== END | disposition home or self-care (01) ==
LOC: LAB 17:53
PROVIDERS: ATTEND Family Medicine
DX: I82.491 Acute embolism and thrombosis of other specified deep vein of right lower extremity (principal)
CPT/HCPCS: 36415; 80048; 85025; 85379

== ENCOUNTER → 2019-04-30 | Outpatient (CLI) | payer BC ==
[~2019-04-30] MED LIST changes: +IOHEXOL 240 MG/ML 50ML VIAL. ONE
[2019-04-30 09:33] VITALS: BP 149/85
--- NOTE | 2019-04-30 16:24 | RAD ---
PQRS Compliance statement: One or more of the following individualized dose reduction techniques were utilized for this examination: 1. Automated exposure control. 2. Adjustment of the mA and/or kV according to patient size. 3. Use of iterative reconstruction technique. Indication:Left lower quadrant pain worsening coughing. TECHNIQUE: CT abdomen and pelvis without IV contrast with multiplanar reformats. COMPARISON: 04/03/2017. FINDINGS: Limited evaluation of solid abdominal and pelvic organs due to lack of IV contrast. Heart is normal in size. No pericardial or pleural effusion. Bilateral subpleural reticulations in the lungs likely secondary to sequela of prior infection. Although developing interstitial fibrosis is also a possibility. Noncontrast appearance of the liver, spleen, pancreas, adrenals and kidneys are within normal limits. No enlarged retroperitoneal or pelvic adenopathy. No free pelvic fluid or ascites. The prostate and seminal vesicles show no large mass. Nonemergent hernia. No bowel obstruction. Normal appendix. Urinary bladder demonstrate no radiopaque stone. Linear lucency seen through the right sacral alae. No suspicious bony lesion. Status post posterior fusion from L1-S1. IMPRESSION: Limited evaluation of solid abdominal and pelvic organs due to lack of IV contrast. 1. Linear lucency in the right sacral concerning for nondisplaced sacral fracture. Clinically correlate with pain. Electronically signed by: Carmine Osuna DO (04/30/2019 4:21 PM) [id number]
== END | disposition home or self-care (01) ==
LOC: CT 10:36
PROVIDERS: ATTEND Family Medicine
DX: K46.9 Unspecified abdominal hernia without obstruction or gangrene (principal)
CPT/HCPCS: 74176

== ENCOUNTER → 2019-05-28 | Outpatient (CLI) | payer BC ==
[2019-04-30 09:33] VITALS: BP 149/85
[~2019-05-28] MED LIST changes: -IOHEXOL 240 MG/ML 50ML VIAL. ONE; +IOHEXOL 350 MG/ML 100 ML VIAL. IV ONE; +OMEP40CA45 PO; -OMEP40CA5 PO
[2019-05-28 12:57] LABS: CREATININE 1.1 mg/dL (0.7-1.3); GFR 67.4
--- NOTE | 2019-05-28 14:07 | RAD ---
CTA OF THE CHEST WITH AND WITHOUT CONTRAST Clinical indications: Elevated d-dimer. Shortness of breath. Possible pulmonary embolism. Technique: Noncontrast axial localizer was performed. After IV infusion of 100 cc of Omnipaque 350, helical CT scanning of the chest was performed using the CT pulmonary embolism protocol. A coronal MIP reconstruction was generated. PQRS compliance Statement One or more of the following individualized dose reduction techniques were utilized for this study: 1. Automated exposure control 2. Adjustment of the mA and/or kV according to patient size 3. Use of iterative reconstruction technique Comparison: Comparison: March 18, 2018. Findings: No pulmonary embolism is evident. No focal aneurysmal dilatation or dissection of the thoracic aorta is seen. Heart size is normal and no pericardial effusion is seen. Calcified atheromatous disease of the coronary arteries is seen. Calcified right hilar lymph nodes and mediastinal lymph nodes are seen due to old granulomatous disease. No enlarged thoracic lymphadenopathy is evident. Calcified granuloma of the posterior aspect of the right upper lobe is seen. There is peripheral subpleural interstitial lung infiltrates consistent with pulmonary fibrosis. No lung consolidation with air bronchograms is seen. No lung mass is evident. No pleural effusion or pneumothorax is evident. The proximal bronchial tree is patent. No adrenal mass is evident. No lytic process is seen. IMPRESSION: No pulmonary embolism. Bilateral pulmonary fibrosis. Calcified atheromatous disease of the coronary arteries. Electronically signed by: Felipe Orona MD (05/28/2019 2:04 PM) [id number]
== END | disposition home or self-care (01) ==
LOC: CT 12:09
PROVIDERS: ATTEND Family Medicine
DX: I25.10 Atherosclerotic heart disease of native coronary artery without angina pectoris (principal); I12.9 Hypertensive chronic kidney disease with stage 1 through stage 4 chronic kidney disease, or unspecified chronic kidney disease; E11.22 Type 2 diabetes mellitus with diabetic chronic kidney disease; N18.2 Chronic kidney disease, stage 2 (mild); J84.10 Pulmonary fibrosis, unspecified
CPT/HCPCS: 36415; 71275; 82565; 84520; Q9967

== ENCOUNTER → 2019-08-31 | Outpatient (CLI) | payer MEDICARE, BC ==
[2019-04-30 09:33] VITALS: BP 149/85
[~2019-08-31] MED LIST changes: -IOHEXOL 350 MG/ML 100 ML VIAL. IV ONE; +SIMV40TA18 PO; -SIMV40TA3 PO
--- NOTE | 2019-08-31 14:09 | RAD ---
Bone Scintigraphy - Limited Area PROCEDURE: BONE SCAN LIMITED STUDY DATE: 08/31/2019 RADIOPHARMACEUTICAL: 24.0 mCi Tc-99m MDP I.V. CLINICAL INDICATION/HISTORY: Right great toe discomfort after healing of a previous dorsal right great toe wound.. TECHNIQUE: Anterior, posterior and lateral views of the bilateral feet were obtained. COMPARISON: Right foot x-rays of 03/18/2019 FINDINGS: A limited examination of the bilateral feet was performed, consisting of delayed planar images in multiple projections. There is asymmetric uptake annotation reflects increased uptake in the left midfoot and left ankle joint. If clinically warranted, correlated radiographs can be obtained in further evaluation. The right foot that is symptomatic, shows no abnormal uptake. IMPRESSION: 1. Negative right foot bone scan. 2. Incidental left foot midfoot and ankle joint uptake. These most likely represent degenerative changes. Consider correlation with left foot radiographs as clinically warranted. Electronically signed by: Mendez Chase MD (08/31/2019 2:06 PM) [facility]
== END | disposition home or self-care (01) ==
LOC: NM 09:01
PROVIDERS: ATTEND Family Medicine
DX: L03.115 Cellulitis of right lower limb (principal)
CPT/HCPCS: 78300; A9503